=== PATIENT | male | born 1980 | race Caucasian/White ===

== ENCOUNTER 2017-03-05 18:02 | Emergency (ER) | payer OTHER ==
[~2017-03-05] VITALS: Ht 167.6 cm; Wt 71.9 kg
[~2017-03-05 18:02] MED LIST: FLEXERIL10 MG PO; MOTRIN600 MG PO; NO MEDS; NOHOMEMEDS; PERCOCET 5/31 TABLET PO; PROZAC40 MG; PROZAC40 MG PO; TRAMADOL HCL50 MG PO
[2017-03-05 18:51] LABS: BASOPHIL COUNT 0.1 K/uL (0-0.1); EOSINOPHIL (%) 0.6 % (0-5); EOSINOPHIL COUNT 0.1 K/uL (0-0.3); HEMATOCRIT 41.2 % (38.0-50.0); IMMATURE GRANULOCYTE (%) 0.5 % (0.0-0.7); IMMATURE GRANULOCYTE COUNT 0.1 K/uL; INSTRUMENT ABS NEUTROPHIL CT 11.9 K/uL; LYMPHOCYTE COUNT 0.6 K/uL (1.0-2.8); MCH 31.4 PG (29.0-34.0); MCHC 33.7 G/DL (30.0-36.0); MEAN PLAT.VOLUME 9.1 uM^3 (9.0-12.4); MONOCYTE (%) 6.8 % (3-12); MONOCYTE COUNT 0.9 K/uL (0-0.8); NEUTROPHIL (%) 87.3 % (45-76); NEUTROPHIL COUNT 11.9 K/uL (1.8-6.4); PLATELET COUNT 173 K/uL (156-360); RBC DIS.WIDTH-CV 12.1 % (11.8-14.6); RED BLOOD COUNT 4.43 M/uL (4.00-5.50); WHITE BLOOD COUNT 13.6 K/uL (4.1-10.2)
[2017-03-05 19:04] LABS: CHLORIDE 103 mEq/L (99-109); POTASSIUM 4.5 mEq/L (3.7-5.4); SODIUM 140 mEq/L (136-147)
[2017-03-05 19:06] LABS: GLUCOSE 94 mg/dL (70-99)
[2017-03-05 19:07] LABS: ANION GAP 7 MEQ/L (2-14)
[2017-03-05 19:09] LABS: GFR ESTIMATE (CALCULATED) 56 mL/min/; SERUM ETHYL ALCOHOL < 10 mg/dL
[2017-03-05 19:11] LABS: UREA NITROGEN (BUN) 14 mg/dL (9-23)
[2017-03-05 19:13] LABS: SALICYLATE < 5.0 MG/DL (15-30)
[2017-03-05] MEDS ORDERED: NARCAN4 MG NS (21:01)
[2017-03-05 21:39] VITALS: BP 117/77
== END 2017-03-05 21:40 | disposition home or self-care (01) ==
LOC: EME 18:02
PROVIDERS: Emergency Medicine
DX: T40.2X1A Poisoning by other opioids, accidental (unintentional), initial encounter (principal); F17.200 Nicotine dependence, unspecified, uncomplicated
CPT/HCPCS: 80048; 85025; 99281; 99285; G0480; J2310; J2405; J7030